=== PATIENT | male | born 1970 | race Caucasian/White ===

== ENCOUNTER 2023-11-21 11:05 | Day surgery (SDC) | payer OTHER ==
[2023-11-21 09:48] LABS: MEAN CORPUSCULAR HGB CONC 30.2 g/dl (32.0-36.0); PLATELET COUNT 656 K/uL (150-450); RED BLOOD COUNT 3.95 M/uL (4.00-6.00)
[2023-11-21 09:49] LABS: HEMOGLOBIN 8.2 g/dL (13-16.00); MEAN CELL VOLUME 68.3 fL (80.0-100.00); MEAN CORPUSCULAR HEMOGLOBIN 20.7 pg (27.00-32.0); RED CELL DISTRIBUTION WIDTH 18.5 % (11.5-14.5)
[2023-11-21 10:14] LABS: INR 1.15; PARTIAL THROMBOPLASTIN TIME 33.9 SECONDS (22.0-34.0); PROTHROMBIN TIME 12.4 SECONDS (9.0-11.5)
[2023-11-21 10:44] LABS: ALBUMIN 3.1 gm/dL (3.4-5.0); BILIRUBIN TOTAL 0.35 mg/dL (0.3-1.2); CALCIUM 9.3 mg/dL (8.5-10.1); CREATININE SERUM 0.77 mg/dL (0.70-1.30); GFR 104.89; GLOBULINA 4.1 G/DL (2.4-3.5); POTASSIUM 4.74 mEq/L (3.5-5.1); TOTAL PROTEIN 7.2 gm/dL (6.4-8.2)
[~2023-11-21 11:05] MED LIST: BUPIVACAINE HCL/Mpf 0.5% 10ML VIAL ONE; HEPARIN SODIUM,PORCINE 500 UNITS/5 ML VIAL IV ONE; LIDOCAINE HCL 1% 20ML VIAL IJ ONE
[2023-11-21] MEDS ORDERED: TRAM1TAB98 PO (13:23)
[2023-11-21] MEDS ORDERED: POVIDONE-IODINE 118 ML BOTT TOP ONE (13:48)
[2023-11-21] MEDS ORDERED: HEPARIN SODIUM,PORCINE 500 UNITS/5 ML VIAL IV ONE (13:49)
[2023-11-21] MEDS ORDERED: BUPIVACAINE HCL/Mpf 0.5% 10ML VIAL ONE (13:50)
[2023-11-21] MEDS ORDERED: LIDOCAINE HCL 1% 20ML VIAL IJ ONE (13:50)
[2023-11-21] MEDS ORDERED: CEFAZOLIN SODIUM 1,000 MG VIAL ONE (13:53)
== END 2023-11-21 17:20 | disposition home or self-care (01) ==
LOC: CIR.AMB 11:05
PROVIDERS: ATTEND Surgery
DX: C18.2 Malignant neoplasm of ascending colon (principal)
CPT/HCPCS: 36561; C1751

== ENCOUNTER 2023-12-03 22:45 | Inpatient (IN) | payer OTHER ==
[~2023-12-03] VITALS: Ht 175.3 cm; Wt 74.4 kg
[~2023-12-03 22:45] MED LIST changes: -BUPIVACAINE HCL/Mpf 0.5% 10ML VIAL ONE; -HEPARIN SODIUM,PORCINE 500 UNITS/5 ML VIAL IV ONE; -LIDOCAINE HCL 1% 20ML VIAL IJ ONE; +TRAM1TAB98 PO
[2023-12-03] MEDS ORDERED: ACETAMINOPHEN 500 MG GEL..CAP PO ONE (23:05)
[2023-12-04] MEDS ORDERED: VANCOMYCIN HCL 1,000 MG VIAL IV STA (00:46)
[2023-12-04] MEDS ORDERED: ENOXAPARIN SODIUM 60 MG/0.6 ML SYRINGE SUBCUTANEO STA (00:47)
[2023-12-04] MEDS ORDERED: ENOXAPARIN SODIUM 60 MG/0.6 ML SYRINGE SUBCUTANEO ONE (00:57)
[2023-12-04] MEDS ORDERED: VANCOMYCIN HCL 1,000 MG VIAL ONE ×2 (00:57→09:00)
[2023-12-04] MEDS ORDERED: RINGERS SOLUTION,LACTATED 1,000 ML IV ONE (01:00)
[2023-12-04 02:57] LABS: PH,URINE 5.5 (5.0-8.0); URINE APPEARANCE Clear; URINE BILIRRUBIN Negative (NEGATIVE); URINE BLOOD Negative; URINE COLOR Dark Yellow; URINE GLUCOSE Negative (NEGATIVE); URINE KETONE Trace (NEGATIVE); URINE LEUKOCYTE Negative; URINE NITRATE Negative; URINE PROTEIN 30 (NEGATIVE)
[2023-12-04 03:01] LABS: URINE BACTERIA 1064.6 uL (0.0-1933); URINE CAST 2.59 uL (0.0-1.40); URINE EPITHELIAL CELLS 15.1 uL (0.0-38.8); URINE RBC 6.1 uL (0.0-20.8); URINE WBC 9.7 uL (0.0-23.2)
[2023-12-04 03:37] LABS: HEMATOCRIT 24.8 % (39.0-48.0); MEAN CORPUSCULAR HGB CONC 30.1 g/dl (32.0-36.0); PLATELET COUNT 542 K/uL (150-450); RED BLOOD COUNT 3.73 M/uL (4.00-6.00); RED CELL DISTRIBUTION WIDTH 18.1 % (11.5-14.5)
[2023-12-04 03:40] LABS: MEAN CELL VOLUME 66.4 fL (80.0-100.00); MEAN CORPUSCULAR HEMOGLOBIN 19.8 pg (27.00-32.0)
[2023-12-04 03:41] LABS: HEMOGLOBIN 7.4 g/dL (13-16.00)
[2023-12-04 03:52] LABS: INR 1.21; PARTIAL THROMBOPLASTIN TIME 36.3 SECONDS (22.0-34.0)
[2023-12-04 03:54] LABS: ALBUMIN 2.7 gm/dL (3.4-5.0); BILIRUBIN TOTAL 0.35 mg/dL (0.3-1.2); CALCIUM 8.9 mg/dL (8.5-10.1); CREATININE SERUM 0.94 mg/dL (0.70-1.30); GFR 83.32; GLOBULINA 4.8 G/DL (2.4-3.5); POTASSIUM 4.13 mEq/L (3.5-5.1); TOTAL PROTEIN 7.5 gm/dL (6.4-8.2)
[2023-12-04] MEDS ORDERED: RINGERS SOLUTION,LACTATED 1,000 ML IV SCH (07:30)
[2023-12-04 08:27] VITALS: BP 130/85
[2023-12-04] MEDS ORDERED: FAMOtidine 20 MG TABLET PO SCH (09:00)
[2023-12-04] MEDS ORDERED: ENOXAPARIN SODIUM 80 MG/0.8 ML SYRINGE SUBCUTANEO SCH ×2 (09:00→21:00)
[2023-12-04] MEDS ORDERED: VANCOMYCIN HCL 1,000 MG VIAL IV SCH (09:00)
[2023-12-04] MEDS ORDERED: ENOXAPARIN SODIUM 80 MG/0.8 ML SYRINGE SUBCUTANEO ONE (09:00)
[2023-12-04] MEDS ORDERED: FAMOTIDINE/PF 20 MG/2 ML VIAL ONE (09:00)
[2023-12-04 09:02] LABS: MEAN CORPUSCULAR HGB CONC 30.2 g/dl (32.0-36.0); PLATELET COUNT 484 K/uL (150-450); RED BLOOD COUNT 3.47 M/uL (4.00-6.00); RED CELL DISTRIBUTION WIDTH 17.9 % (11.5-14.5)
[2023-12-04 09:22] LABS: MEAN CELL VOLUME 66.5 fL (80.0-100.00); MEAN CORPUSCULAR HEMOGLOBIN 20.1 pg (27.00-32.0)
[2023-12-04 09:29] LABS: INR 1.21
[2023-12-04 09:41] LABS: PARTIAL THROMBOPLASTIN TIME 39.5 SECONDS (22.0-34.0)
[2023-12-04 09:46] LABS: ALBUMIN 2.4 gm/dL (3.4-5.0); CALCIUM 8.4 mg/dL (8.5-10.1); CREATININE SERUM 0.67 mg/dL (0.70-1.30); GFR 123.15; MAGNESIUM 2.3 mg/dL (1.8-2.4); PHOSPHOROUS 3.7 mg/dL (2.5-4.9); POTASSIUM 4.61 mEq/L (3.5-5.1)
[2023-12-04] MEDS ORDERED: BARIUM SULFATE 450 ML ORAL.SUSP PO ONE (10:34)
[2023-12-04 13:33] LABS: FECAL LEUKOCYTES NEGATIVE (NEGATIVE); ob POSITIVE (NEGATIVE)
[2023-12-04 16:59] VITALS: BP 105/600; O2SAT 98
[2023-12-04] MEDS ORDERED: KETOROLAC TROMETHAMINE 30 MG VIAL IV STA (19:23)
[2023-12-04] MEDS ORDERED: OxyCODONE HCL 5 MG TABLET (ROXICODONE) PO PRN ×2 (19:30→19:41)
[2023-12-05] MEDS ORDERED: FUROsemide 20 MG/2 ML VIAL IV SCH (00:30)
[2023-12-05 00:44] VITALS: BP 102/67; O2SAT 99
[2023-12-05 08:00] VITALS: BP 114/74; O2SAT 96
[2023-12-05 08:00] LABS: HEMATOCRIT 23.7 % (39.0-48.0); MEAN CORPUSCULAR HGB CONC 31.7 g/dl (32.0-36.0); PLATELET COUNT 464 K/uL (150-450); RED BLOOD COUNT 3.47 M/uL (4.00-6.00); RED CELL DISTRIBUTION WIDTH 21.3 % (11.5-14.5)
[2023-12-05 08:19] LABS: MEAN CELL VOLUME 68.4 fL (80.0-100.00); MEAN CORPUSCULAR HEMOGLOBIN 21.6 pg (27.00-32.0)
[2023-12-05 08:20] LABS: HEMOGLOBIN 7.5 g/dL (13-16.00)
[2023-12-05 08:25] LABS: ALBUMIN 2.2 gm/dL (3.4-5.0); CALCIUM 8.3 mg/dL (8.5-10.1); CREATININE SERUM 0.69 mg/dL (0.70-1.30); GFR 119.04; MAGNESIUM 2.2 mg/dL (1.8-2.4); PHOSPHOROUS 3.6 mg/dL (2.5-4.9); POTASSIUM 4.53 mEq/L (3.5-5.1)
[2023-12-05 17:20] VITALS: BP 142/84; O2SAT 98
[2023-12-06 01:00] VITALS: BP 140/64; O2SAT 97
[2023-12-06 08:00] VITALS: BP 137/83; O2SAT 99
[2023-12-06 10:57] LABS: HEMATOCRIT 30.7 % (39.0-48.0); MEAN CELL VOLUME 73.2 fL (80.0-100.00); MEAN CORPUSCULAR HGB CONC 31.1 g/dl (32.0-36.0); PLATELET COUNT 408 K/uL (150-450); RED CELL DISTRIBUTION WIDTH 23.4 % (11.5-14.5)
[2023-12-06 11:05] LABS: HEMOGLOBIN 9.5 g/dL (13-16.00); MEAN CORPUSCULAR HEMOGLOBIN 22.6 pg (27.00-32.0)
[2023-12-06 16:00] VITALS: BP 133/83; O2SAT 98
[2023-12-06] MEDS ORDERED: Cyanocobalamin/Mecobalamin 1 TAB.SL SL SCH (17:05)
[2023-12-06] MEDS ORDERED: SOD FERRIC GLUC COMPLX/SUCROSE 62.5 MG in 0.9 % SODIUM CHLORIDE 50 ML IV SCH (17:05)
[2023-12-07 00:45] VITALS: BP 142/81; O2SAT 95
[2023-12-07 08:00] VITALS: BP 116/70; O2SAT 98
[2023-12-07] MEDS ORDERED: POLYETHYLENE GLYCOL 3350 17 GM BLIST.PACK PO STA (10:54)
[2023-12-07 16:00] VITALS: BP 137/85; O2SAT 95
[2023-12-07] MEDS ORDERED: POLYETHYLENE GLYCOL 3350 17 GM BLIST.PACK PO SCH (21:00)
[2023-12-08 00:15] VITALS: BP 113/61; O2SAT 100
[2023-12-08 06:25] LABS: MEAN CELL VOLUME 72.7 fL (80.0-100.00); PLATELET COUNT 408 K/uL (150-450); RED BLOOD COUNT 3.58 M/uL (4.00-6.00); RED CELL DISTRIBUTION WIDTH 24.4 % (11.5-14.5)
[2023-12-08 06:29] LABS: MEAN CORPUSCULAR HEMOGLOBIN 23.1 pg (27.00-32.0)
[2023-12-08 06:30] LABS: HEMOGLOBIN 8.3 g/dL (13-16.00)
[2023-12-08 06:59] LABS: CALCIUM 8.2 mg/dL (8.5-10.1); CREATININE SERUM 0.68 mg/dL (0.70-1.30); GFR 121.07; MAGNESIUM 2.2 mg/dL (1.8-2.4); POTASSIUM 4.33 mEq/L (3.5-5.1)
[2023-12-08 08:00] VITALS: BP 127/79; O2SAT 97
[2023-12-08] MEDS ORDERED: FUROsemide 20 MG/2 ML VIAL IV SCH (15:15)
[2023-12-08 16:35] VITALS: BP 146/87; O2SAT 97
[2023-12-09] VITALS: BP 134/85; O2SAT 97
[2023-12-09 07:53] VITALS: BP 142/79; O2SAT 98
[2023-12-09 16:28] VITALS: BP 176/83; O2SAT 98
[2023-12-09 19:29] LABS: HEMATOCRIT 31.7 % (39.0-48.0); HEMOGLOBIN 10.3 g/dL (13-16.00); MEAN CELL VOLUME 73.7 fL (80.0-100.00); MEAN CORPUSCULAR HGB CONC 32.5 g/dl (32.0-36.0); PLATELET COUNT 342 K/uL (150-450); RED BLOOD COUNT 4.31 M/uL (4.00-6.00); RED CELL DISTRIBUTION WIDTH 23.4 % (11.5-14.5)
== END 2023-12-09 19:54 | disposition home or self-care (01) | DRG 315 ==
LOC: ER 22:46 → SEC-K 12-04 07:32 → SURH 12-04 07:32
PROVIDERS: General Practice; Internal Medicine Geriatric Medicine; Surgery; ADMIT Surgery; ATTEND Surgery
PROC: 30233N1 Transfusion of Nonautologous Red Blood Cells into Peripheral Vein, Percutaneous Approach (ICD-10-PCS; 2023-12-04)
PROC: B34JZZZ Ultrasonography of Left Upper Extremity Arteries (ICD-10-PCS; 2023-12-04)
PROC: B54NZZZ Ultrasonography of Left Upper Extremity Veins (ICD-10-PCS; 2023-12-04)
PROC: BW21YZZ Computerized Tomography (CT Scan) of Abdomen and Pelvis using Other Contrast (ICD-10-PCS; 2023-12-04)
PROC: 05PY33Z Removal of Infusion Device from Upper Vein, Percutaneous Approach (ICD-10-PCS; principal; 2023-12-05 12:45)
PROC: B54MZZZ Ultrasonography of Right Upper Extremity Veins (ICD-10-PCS; 2023-12-06)
DX: T80.211A Bloodstream infection due to central venous catheter, initial encounter (principal); C18.2 Malignant neoplasm of ascending colon; I82.622 Acute embolism and thrombosis of deep veins of left upper extremity; D64.9 Anemia, unspecified